=== PATIENT | female | born 1995 | race Caucasian/White ===

== ENCOUNTER 2017-05-23 20:35 | Emergency (ER) | payer SELFPAY ==
[~2017-05-23] VITALS: Ht 149.9 cm; Wt 67.7 kg
[2017-05-23 20:59] VITALS: BP 145/87
--- NOTE | 2017-05-23 21:04 | NUR ---
PT RETURNED TO LOBBY
--- NOTE | 2017-05-24 00:48 | NUR ---
PATIENT PRESENTS TO ED WITH C/O FEVER/ABD PAIN/VOMIT X 1 DAY. SKIN IS PINK/WARM/DRY; AAOX4 WITH EVEN AND STEADY GAIT; LUNGS CLEAR BL; HR EVEN AND REGULAR; PT DENIES ANY CP, SOB, OR COUGH AT THIS TIME; PATIENT STATES PAIN OF 10/10 AT THIS TIME; VSS; PATIENT POSITIONED FOR COMFORT; HOB ELEVATED; BEDRAILS UP X2; BED DOWN. ER MD MADE AWARE OF PT STATUS.
--- NOTE | 2017-05-24 00:56 | NUR ---
Patient discharged with v/s stable. Written and verbal after care instructions given and explained. Patient alert, oriented and verbalized understanding of instructions. Ambulatory with steady gait. All questions addressed prior to discharge. ID band removed. Patient advised to follow up with PMD. Rx of ZOFRAN 4MG ODT, MOTRIN 800MG given. Patient educated on indication of medication including possible reaction and side effects. Opportunity to ask questions provided and answered.
[2017-05-24 00:57] VITALS: BP 119/86
== END 2017-05-24 00:56 | disposition home or self-care (01) ==
LOC: MED 20:35
DX: A08.4 Viral intestinal infection, unspecified (principal)
CPT/HCPCS: 36415; 81002; 81025; 87804; 99285

== ENCOUNTER 2017-06-01 18:30 | Emergency (ER) | payer SELFPAY ==
[~2017-06-01] VITALS: Ht 149.9 cm; Wt 67.4 kg
[2017-06-01 19:05] VITALS: BP 128/76
--- NOTE | 2017-06-01 20:25 | NUR ---
AMBULATED TO ER BED 3
--- NOTE | 2017-06-01 20:35 | NUR ---
/ CAME IN W C/O VAGINAL BLEEDING AND 03/01 SUPRAPUBIC PAIN X 1 WEEK. PT STATES SHE WAS SEEN HERE IN ER FOR N/V/ ABD PAIN ADN WAS GIVEN IBUPROFEN AND ZOFRAN, PT STATES THE MEDICINES MAKES HER PAIN WORSE. BS ACTIVE, ABD SOFT, ROUND AND +TENDERNESS TO LOWER ABD PAIN. DENIES N/V/D, SOB/COUGH/CP AT THIS TIME. DENIES OTHER PMH/RX/OTC Addendum: 06/01/17 at 2 by LISA REPORTS HEMATURIA/DYSURIA
--- NOTE | 2017-06-01 21:27 | NUR ---
Patient discharged with v/s stable. Written and verbal after care instructions given and explained. Patient alert, oriented and verbalized understanding of instructions. Ambulatory with steady gait. All questions addressed prior to discharge. ID band removed. Patient advised to follow up with PMD. Rx of TRAMADOL AND MACROBID given. Patient educated on indication of medication including possible reaction and side effects. Opportunity to ask questions provided and answered.
[2017-06-01 21:28] VITALS: BP 104/71
[2017-06-01 21:32] LABS: APPEARANCE,URINE CLOUDY (CLEAR); BILIRUBIN,URINE NEGATIVE (NEGATIVE); BLOOD, URINE 2+ (NEGATIVE); COLOR,URINE YELLOW (YELLOW); LEUKOCYTE ESTERASE ,URINE 1+ (NEGATIVE); NITRITE, URINE NEGATIVE (NEGATIVE); PH,URINE 7.5 (5.0-9.0); UGLUCOSE NEGATIVE (NEGATIVE)
[2017-06-01 21:40] LABS: RBC,URINE 0-5 (RARE) /HPF (0-5); WBC,URINE 80-100 /HPF (0-5)
== END 2017-06-01 21:27 | disposition home or self-care (01) ==
LOC: MED 18:30
DX: N93.8 Other specified abnormal uterine and vaginal bleeding (principal); N39.0 Urinary tract infection, site not specified
CPT/HCPCS: 81001; 81025; 87086; 87186; 99284

== ENCOUNTER 2017-08-22 21:25 | Inpatient (IN) | payer SELFPAY ==
[~2017-08-22] VITALS: Ht 160 cm; Wt 68.9 kg
[2017-08-22 21:27] VITALS: BP 149/90
[2017-08-22] MEDS ORDERED: ACETAMINOPHEN EXTRA STRENGTH 500 MG TAB PO ONE (22:45)
[2017-08-22 23:26] LABS: BASOPHILS # (AUTO) 0.5 K/uL (0.00-0.22); BASOPHILS % (AUTO) 4.8 % (0.0-2.0); EOSINOPHILS # (AUTO) 0.1 K/uL (0-0.4); EOSINOPHILS % (AUTO) 0.9 % (0.0-4.0); HEMATOCRIT 42.9 % (36-48); HEMOGLOBIN 14.5 g/dL (12.0-16.0); LYMPHOCYTES # (AUTO) 2.5 K/uL (2.5-16.5); LYMPHOCYTES % (AUTO) 24.8 % (20.5-51.1); MEAN CORPUSCULAR HEMOGLOBIN 30 pg (27-31); MEAN CORPUSCULAR HGB CONC 34 g/dL (33-37); MONOCYTES # (AUTO) 0.7 K/uL (0.8-1.0); NEUTROPHILS # (AUTO) 6.2 K/uL (1.8-7.7); NEUTROPHILS % (AUTO) 62.5 % (42.2-75.2); PLATELET COUNT (AUTO) 274 K/uL (140-450); RED BLOOD CELL COUNT(AUTO) 4.93 MIL/uL (4.20-5.40); RED CELL DISTRIBUTION WIDTH 13.3 % (11.6-13.7)
[2017-08-22 23:27] LABS: ANION GAP 14.4 (8-16); CARBON DIOXIDE 29.2 mmol/L (21-32); CREATININE 0.5 mg/dL (0.6-1.3); POTASSIUM 3.6 mmol/L (3.5-5.1)
[2017-08-22 23:34] LABS: ALBUMIN 3.9 g/dL (3.4-5.0); TOTAL BILIRUBIN 0.2 mg/dL (0.0-1.0)
[2017-08-23 02:14] LABS: APPEARANCE,URINE SL CLOUDY (CLEAR); BILIRUBIN,URINE NEGATIVE (NEGATIVE); BLOOD, URINE 3+ (NEGATIVE); COLOR,URINE YELLOW (YELLOW); LEUKOCYTE ESTERASE ,URINE NEGATIVE (NEGATIVE); NITRITE, URINE NEGATIVE (NEGATIVE); PH,URINE 5.5 (5.0-9.0); UGLUCOSE NEGATIVE (NEGATIVE)
[2017-08-23] MEDS ORDERED: PIPERACILLIN/TAZOBACTAM 3.375 GM in DEXTROSE 5% 50 ML IV ONE (02:25)
[2017-08-23] MEDS ORDERED: NACL 0.9% 1,000 ML IV ONE (02:25)
[2017-08-23 02:35] LABS: RBC,URINE TOO NUMEROUS TO COUN /HPF (0-5); WBC,URINE NONE SEEN /HPF (0-5)
[2017-08-23] MEDS ORDERED: PIPERACILLIN/TAZOBACTAM 3.375 GM VIAL IV ONE (02:37)
[2017-08-23] MEDS ORDERED: ONDANSETRON 4 MG/2 ML VIAL IVP PRN ×2 (03:55→17:40)
[2017-08-23] MEDS ORDERED: ACETAMINOPHEN 325 MG TAB PO PRN (03:55)
[2017-08-23 04:24] LABS: BARBITURATE, URINE NEG. ng/ml (NEG <=200); BENZODIAZEPINE, URINE NEG. ng/mL (NEG <=200); CANNABINOID, URINE NEG. ng/mL (NEG <=50); COCAINE, URINE NEG. ng/mL (NEG <=300); OPIATE, URINE NEG. ng/mL (NEG <=2000); PHENCYCLIDINE SCREEN,URINE NEG. ng/mL (NEG <=25)
[2017-08-23 04:34] LABS: CHOL/HDL RATIO 2.8 (1-4.5); FREE T4 (FREE THYROXINE) 0.98 ng/dL (0.76-1.46); THYROID STIMULATING HORMONE 4.12 uIU/mL (0.34-3.74)
[2017-08-23] MEDS: NACL 0.9% 1,000 ML IV SCH ×2 (04:38→13:54)
[2017-08-23 04:40] VITALS: BP 123/66
[2017-08-23 08:00] VITALS: BP 110/61
[2017-08-23 08:13] LABS: PROTHROMBIN TIME 11.3 secs (10.8-13.4)
[2017-08-23 08:20] LABS: EOSINOPHILS # (AUTO) 0.1 K/uL (0-0.4); HEMATOCRIT 39.7 % (36-48); HEMOGLOBIN 13.4 g/dL (12.0-16.0); LYMPHOCYTES # (AUTO) 2.3 K/uL (2.5-16.5); MEAN CORPUSCULAR HEMOGLOBIN 30 pg (27-31); MEAN CORPUSCULAR HGB CONC 34 g/dL (33-37); MEAN CORPUSCULAR VOLUME 88.2 fL (80-94); MONOCYTES # (AUTO) 0.5 K/uL (0.8-1.0); NEUTROPHILS # (AUTO) 4.2 K/uL (1.8-7.7); PLATELET COUNT (AUTO) 245 K/uL (140-450); WHITE BLOOD COUNT (AUTO) 7.2 K/uL (4.8-10.8)
[2017-08-23 08:23] LABS: LYMPHOCYTES % (AUTO) 32.3 % (20.5-51.1); MONOCYTES % (AUTO) 7.4 % (1.7-9.3); NEUTROPHILS % (AUTO) 58.8 % (42.2-75.2)
[2017-08-23 08:24] LABS: BASOPHILS % (AUTO) 0.7 % (0.0-2.0); EOSINOPHILS % (AUTO) 0.8 % (0.0-4.0)
[2017-08-23 08:26] LABS: ANION GAP 11.4 (8-16); CARBON DIOXIDE 28.4 mmol/L (21-32); CREATININE 0.5 mg/dL (0.6-1.3); POTASSIUM 3.8 mmol/L (3.5-5.1)
[2017-08-23 08:41] LABS: MAGNESIUM 1.9 mg/dL (1.8-2.4); PHOSPHORUS 3.6 mg/dL (2.5-4.9)
[2017-08-23] MEDS: DOCUSATE SODIUM 100 MG GELCAP PO SCH ×2 (09:00→21:31)
[2017-08-23] MEDS: LACTOBACILLUS RHAMNOSUS GG 1 EACH CAP PO SCH ×2 (09:00→11:35)
[2017-08-23] MEDS: HYDROcodone/APAP 7.5/325 MG 1 TAB PO PRN ×2 (11:35→19:54)
[2017-08-23 12:00] VITALS: BP 108/60
[2017-08-23] MEDS: PIPER/TAZO 3.375GM/D5W PREMIX 50 ML IV SCH ×2 (12:29→21:35)
[2017-08-23 16:00] VITALS: BP 110/63
[2017-08-23] MEDS: BUPIVACAINE-MPF 0.25% 30 ML VIAL INJ ONE ×2 (16:58→17:37)
[2017-08-23] MEDS ORDERED: NEOSTIGMINE 1:1000 10 MG/10 ML VIAL ONE (17:02)
[2017-08-23] MEDS ORDERED: fentaNYL 0.05 MG/ML VIAL ONE (17:02)
[2017-08-23] MEDS ORDERED: ONDANSETRON 4 MG/2 ML VIAL ONE (17:02)
[2017-08-23] MEDS ORDERED: MORPHINE SULFATE 4 MG/ML SYR ONE (17:02)
[2017-08-23] MEDS ORDERED: PROPOFOL 200 MG/20 ML VIAL IV ONE (17:02)
[2017-08-23] MEDS ORDERED: DEXAMETHASONE 4 MG/ML VIAL ONE (17:02)
[2017-08-23] MEDS ORDERED: GLYCOPYRROLATE 0.2 MG/ML VIAL ONE (17:02)
[2017-08-23] MEDS ORDERED: SUCCINYLCHOLINE CHLORIDE 200 MG/10 ML VIAL IVP ONE ×2 (17:02→17:06)
[2017-08-23] MEDS ORDERED: ROCURONIUM 50 MG/5 ML VIAL IV ONE (17:02)
[2017-08-23] MEDS ORDERED: DESFLURANE 240 ML BTL INH ONE (17:02)
[2017-08-23] MEDS ORDERED: KETOROLAC 30 MG/ML VIAL ONE (17:02)
[2017-08-23] MEDS ORDERED: MORPHINE SULFATE 2 MG/ML SYR IVP PRN (17:40)
[2017-08-23 19:30] VITALS: BP 102/64
[2017-08-23 20:00] VITALS: BP 108/68
[2017-08-23] MEDS ORDERED: KETOROLAC 30 MG/ML VIAL IM PRN (22:40)
[2017-08-23] MEDS: HYDROcodone/APAP 10/325 MG 1 TAB TAB PO PRN (23:06)
[2017-08-24] VITALS: BP 105/62
[2017-08-24] MEDS: PIPER/TAZO 3.375GM/D5W PREMIX 50 ML IV SCH ×2 (04:16→13:00)
[2017-08-24] MEDS: NACL 0.9% 1,000 ML IV SCH ×2 (04:16→09:54)
[2017-08-24 07:03] VITALS: BP 90/60
[2017-08-24 07:07] LABS: BASOPHILS # (AUTO) 0.1 K/uL (0.00-0.22); BASOPHILS % (AUTO) 1.3 % (0.0-2.0); EOSINOPHILS % (AUTO) 0.1 % (0.0-4.0); HEMATOCRIT 37.4 % (36-48); HEMOGLOBIN 12.8 g/dL (12.0-16.0); LYMPHOCYTES # (AUTO) 0.9 K/uL (2.5-16.5); LYMPHOCYTES % (AUTO) 9.9 % (20.5-51.1); MEAN CORPUSCULAR HEMOGLOBIN 30 pg (27-31); MEAN CORPUSCULAR HGB CONC 34 g/dL (33-37); MEAN CORPUSCULAR VOLUME 87.8 fL (80-94); MONOCYTES # (AUTO) 0.3 K/uL (0.8-1.0); MONOCYTES % (AUTO) 2.9 % (1.7-9.3); NEUTROPHILS # (AUTO) 7.8 K/uL (1.8-7.7); NEUTROPHILS % (AUTO) 85.8 % (42.2-75.2); PLATELET COUNT (AUTO) 242 K/uL (140-450); RED BLOOD CELL COUNT(AUTO) 4.26 MIL/uL (4.20-5.40); WHITE BLOOD COUNT (AUTO) 9.1 K/uL (4.8-10.8)
[2017-08-24 07:21] LABS: ANION GAP 13.7 (8-16); CREATININE 0.5 mg/dL (0.6-1.3); POTASSIUM 3.7 mmol/L (3.5-5.1)
[2017-08-24 08:00] VITALS: BP 93/61
[2017-08-24] MEDS: DOCUSATE SODIUM 100 MG GELCAP PO SCH (08:48)
[2017-08-24] MEDS: LACTOBACILLUS RHAMNOSUS GG 1 EACH CAP PO SCH (08:48)
[2017-08-24] MEDS: HYDROcodone/APAP 10/325 MG 1 TAB TAB PO PRN (11:25)
[2017-08-24] MEDS ORDERED: IBUP-2213 PO (11:57)
[2017-08-24] MEDS ORDERED: DOCU-299 PO (11:57)
[2017-08-24] MEDS ORDERED: ACET-2869 PO (11:57)
[2017-08-24] MEDS ORDERED: ONDA4TAB4 PO (11:57)
[2017-08-24 16:01] VITALS: BP 93/53
== END 2017-08-24 18:00 | disposition home or self-care (01) | DRG 343 ==
LOC: MED 21:25 → MTU 08-23 03:58
PROVIDERS: ADMIT Family Medicine Sports Medicine; ATTEND Family Medicine Sports Medicine
PROC: 0DTJ4ZZ Resection of Appendix, Percutaneous Endoscopic Approach (ICD-10-PCS; principal; 2017-08-23 12:25)
DX: K35.80 Unspecified acute appendicitis (principal); R31.9 Hematuria, unspecified
CPT/HCPCS: 36415; 71045; 80048; 80053; 80305; 81001; 81025; 82150; 82374; 83036; 83690; 83735; 83880; 84100; 84439; 84443; 84484; 84703; 85025; 85610; 85730; 87081; 93005; 96365; 99285; J0330; J1100; J1644; J1885; J2270; J2405; J2543; J2704; J2710; J3010; J3490; J7030; Q0092

== ENCOUNTER 2020-11-11 19:44 | Emergency (ER) | payer SELFPAY ==
[~2020-11-11] VITALS: Ht 149.9 cm; Wt 77.1 kg
[~2020-11-11 19:44] MED LIST: DOCU-299 PO; HYDR-5122 PO; IBUP-2213 PO; ONDA4TAB12 PO
[2020-11-11 19:46] VITALS: BP 126/75
[2020-11-11] MEDS ORDERED: AMOX1TAB8 PO (20:46)
[2020-11-11 21:05] VITALS: BP 126/75
== END 2020-11-11 21:05 | disposition home or self-care (01) ==
LOC: MED 19:44
DX: H60.92 Unspecified otitis externa, left ear (principal); J32.0 Chronic maxillary sinusitis; Z90.49 Acquired absence of other specified parts of digestive tract
CPT/HCPCS: 81002; 81025; 99283

== ENCOUNTER 2020-11-14 06:45 | Emergency (ER) | payer SELFPAY ==
[~2020-11-14] VITALS: Ht 149.9 cm; Wt 74.4 kg
[~2020-11-14 06:45] MED LIST changes: +AMOX1TAB8 PO
[2020-11-14 06:53] VITALS: BP 110/69
--- NOTE | 2020-11-14 06:54 | NUR ---
AMBULATED TO ER BED 4
--- NOTE | 2020-11-14 07:04 | NUR ---
PT TAKEN TO BED 4.
--- NOTE | 2020-11-14 07:12 | NUR ---
25 Y/O FEMALE BIB [facility] OTHER FOR RIGHT EAR/FACIAL PAIN. PER PATIENT, SHE WAS SEEN ON 11/11 AT [facility] FOR THE SAME SYMPTOMS AND WAS PRESCRIBED AUGMENTIN. PAIN IS STILL AT A 3/10, SHARP PAIN; BACK OF THE EAR IS TENDER TO TOUCH. PMH: DENIES NKDA MEDS: NONE Addendum: 11/14/20 at 0727 by [email or web address] PATIENT STATE PAIN 10/10 CURRENTLY FELT IN HEAD RADIATING DOWN TO EAR/JAW AREA. STATES PAIN STARTED X2DAYS AGO. UPON ASSESSMENT PATIENT IS UNABLE TO COMPLETELY CLOSE R EYE, UNABLE TO RAISE R EYEBROW, AND LIFT R SIDE OF LIPS WHEN SMILING. DENIES ANY DIZZNESS, N/V, BUT STATES HEADACHE.
--- NOTE | 2020-11-14 07:12 | NUR ---
Dr. Latif is evaluating the patient at bedside.
--- NOTE | 2020-11-14 07:13 | NUR ---
GIVEN REPORT TO MICHOACANO MILLER. TRANSFER OF CARE AT THIS TIME
--- NOTE | 2020-11-14 07:14 | NUR ---
RECIEVED REPORT ANGELA COYNE. TRANSFER OF CARE RECIEVED
[2020-11-14 07:53] LABS: BASOPHILS % (AUTO) 0.4 % (0.0-2.0); EOSINOPHILS # (AUTO) 0.1 K/uL (0-0.4); EOSINOPHILS % (AUTO) 1.6 % (0.0-4.0); HEMATOCRIT 43.4 % (36-48); HEMOGLOBIN 14.9 g/dL (12.0-16.0); LYMPHOCYTES # (AUTO) 2.7 K/uL (2.5-16.5); LYMPHOCYTES % (AUTO) 41.4 % (20.5-51.1); MEAN CORPUSCULAR HEMOGLOBIN 31 pg (27-31); MEAN CORPUSCULAR HGB CONC 34 g/dL (33-37); MEAN CORPUSCULAR VOLUME 90.9 fL (80-94); MONOCYTES # (AUTO) 0.4 K/uL (0.8-1.0); MONOCYTES % (AUTO) 5.5 % (1.7-9.3); NEUTROPHILS # (AUTO) 3.3 K/uL (1.8-7.7); NEUTROPHILS % (AUTO) 51.1 % (42.2-75.2); PLATELET COUNT (AUTO) 292 K/uL (140-450); RED BLOOD CELL COUNT(AUTO) 4.78 MIL/uL (4.20-5.40); RED CELL DISTRIBUTION WIDTH 14.3 % (11.6-13.7); WHITE BLOOD COUNT (AUTO) 6.4 K/uL (4.8-10.8)
--- NOTE | 2020-11-14 07:56 | NUR ---
RECIEVED CONSENT FOR CT WITH CONTRAST BEDSIDE
--- NOTE | 2020-11-14 07:56 | NUR ---
PATIENT TAKEN TO CT W/O CONTRAST VIA W/C
[2020-11-14 08:00] LABS: ANION GAP 18.5 (8-16); CARBON DIOXIDE 26.3 mmol/L (21-32); CREATININE 0.6 mg/dL (0.6-1.3); POTASSIUM 3.8 mmol/L (3.5-5.1)
[2020-11-14] MEDS ORDERED: HYDROcodone/APAP 5/325 MG 1 TAB TAB PO SCH (08:00)
--- NOTE | 2020-11-14 08:05 | NUR ---
PATIENT RETURNED TO BED FROM C/T W/O CONTRAST VIA W/C
--- NOTE | 2020-11-14 08:32 | NUR ---
PATIENT TAKEN TO CT W/CONTRAST VIA W/C
--- NOTE | 2020-11-14 08:44 | NUR ---
PATIENT RETURNED TO BED FROM C/T W/CONTRAST VIA W/C
--- NOTE | 2020-11-14 08:53 | NUR ---
PATIENT AMBULATED TO RESTROOM. GAIT IS STEADY
--- NOTE | 2020-11-14 08:56 | NUR ---
PATIENT AMBULATED TO BED. GAIT WAS STEADY
--- NOTE | 2020-11-14 09:37 | NUR ---
Dr. Latif is reevaluating the patient at bedside.
[2020-11-14] MEDS ORDERED: POLY15SO48 LEFT EYE (09:46)
[2020-11-14] MEDS ORDERED: PRED20TA5 PO ×2 (09:46→09:49)
[2020-11-14] MEDS ORDERED: ACYC400T14 PO ×2 (09:46→09:49)
[2020-11-14] MEDS ORDERED: POLY15SO48 RIGHT EYE (09:49)
[2020-11-14 10:07] VITALS: BP 114/65
--- NOTE | 2020-11-14 10:08 | NUR ---
Patient discharged with v/s stable. Written and verbal after care instructions given BELLS PALSY and explained. Patient alert, oriented and verbalized understanding of instructions. Ambulatory with steady gait. All questions addressed prior to discharge. ID band removed. Patient advised to follow up with PMD. Rx of ACYCLOVIR 400MG PO TID X7DAYS, ARTIFICIAL TEARS QID IN AFFECTED EYE, AND PREDNISONE 20MG PO FOR 7DAYS given. Patient educated on indication of medication including possible reaction and side effects. Opportunity to ask questions provided and answered.
== END 2020-11-14 10:07 | disposition home or self-care (01) ==
LOC: MED 06:45
DX: G51.0 Bell's palsy (principal); H92.02 Otalgia, left ear; Z79.899 Other long term (current) drug therapy; Z90.49 Acquired absence of other specified parts of digestive tract
CPT/HCPCS: 36415; 70450; 70460; 70486; 70491; 80048; 81002; 81025; 85025; 99285; Q9967

== ENCOUNTER 2022-04-01 21:10 | Inpatient (IN) | payer MEDICAID ==
[~2022-04-01] VITALS: Ht 160 cm; Wt 79.4 kg
[~2022-04-01 21:10] MED LIST changes: +ACYC400T14 PO; +AMOX-1230 PO; -AMOX1TAB8 PO; +POLY15SO48 RIGHT EYE; +PRED20TA5 PO
--- NOTE | 2022-04-01 21:15 | NUR ---
Patient BIB [facility] and [facility] Department for syncopal episode approx 2015 hrs. [facility] staff stated that jesica's BP was 65/40 upon arrival, and patient was A/Ox1, O2 sat 98% RA. After patient received IV fluids, recheck BP was 134/82, HR 110, O2 sat 99% RA, A/Ox4. Patient transferred to Bed 5, resting comfortably, 20 G IV LAC flushed and patent, patient on monitor
--- NOTE | 2022-04-01 21:20 | NUR ---
Patient resting in bed, A/Ox4, chest rise and fall symmetrical, no s/s of distress, patient on monitor.
[2022-04-01 21:46] VITALS: BP 104/72
[2022-04-01 21:50] LABS: BASOPHILS % (AUTO) 0.3 % (0.0-2.0); HEMATOCRIT 30.8 % (36-48); LYMPHOCYTES # (AUTO) 1.2 K/uL (2.5-16.5); LYMPHOCYTES % (AUTO) 7.6 % (20.5-51.1); MEAN CORPUSCULAR HEMOGLOBIN 29 pg (27-31); MEAN CORPUSCULAR HGB CONC 33 g/dL (33-37); MEAN CORPUSCULAR VOLUME 89.3 fL (80-94); MONOCYTES # (AUTO) 0.4 K/uL (0.8-1.0); MONOCYTES % (AUTO) 2.6 % (1.7-9.3); NEUTROPHILS # (AUTO) 13.6 K/uL (1.8-7.7); NEUTROPHILS % (AUTO) 89.5 % (42.2-75.2); PLATELET COUNT (AUTO) 257 K/uL (140-450); RED BLOOD CELL COUNT(AUTO) 3.45 MIL/uL (4.20-5.40); RED CELL DISTRIBUTION WIDTH 14.2 % (11.6-13.7); WHITE BLOOD COUNT (AUTO) 15.2 K/uL (4.8-10.8)
[2022-04-01 22:07] LABS: CARBON DIOXIDE 25.9 mmol/L (21-32); CREATININE 0.9 mg/dL (0.6-1.3); POTASSIUM 3.9 mmol/L (3.5-5.1)
[2022-04-01 22:08] LABS: PROTHROMBIN TIME 11.2 secs (10.8-13.4)
--- NOTE | 2022-04-01 22:15 | NUR ---
Patient resting in bed, A/Ox4, chest rise and fall symmetrical, no s/s of distress, patient on monitor.
[2022-04-01] MEDS ORDERED: BUPIVACAINE-MPF 0.25% 30 ML VIAL INJ ONE (22:36)
--- NOTE | 2022-04-01 22:37 | NUR ---
OR TEAM AT BEDSIDE
[2022-04-01] MEDS ORDERED: PIPERACILLIN/TAZOBACTAM 3.375 GM VIAL IV ONE (22:39)
--- NOTE | 2022-04-01 22:40 | NUR ---
OR Team Nurse Russ MILLER given report verbally. OR Team Nurse Russ RN verbalized understanding of report, no further questions.
[2022-04-01] MEDS: NACL 0.9% 1,000 ML IV SCH (22:48)
[2022-04-01] MEDS: PIPERACILLIN/TAZOBACTAM 3.375 GM in DEXTROSE 5% 50 ML IV SCH (22:49)
[2022-04-01] MEDS ORDERED: MIDAZOLAM 2 MG/2 ML VIAL ONE (22:50)
[2022-04-01] MEDS ORDERED: fentaNYL citrate 0.05 MG/ML VIAL ONE (22:50)
[2022-04-01] MEDS ORDERED: PROPOFOL 200 MG/20 ML VIAL IV ONE (22:51)
[2022-04-01] MEDS ORDERED: ROCURONIUM 50 MG/5 ML VIAL IV ONE (22:51)
[2022-04-01] MEDS ORDERED: SEVOFLURANE 250 ML BTL INH ONE (23:15)
[2022-04-01] MEDS ORDERED: ONDANSETRON 4 MG/2 ML VIAL IVP PRN (23:45)
[2022-04-01] MEDS ORDERED: oxyCODONE/APAP 5/325 MG 1 TAB TAB PO PRN ×2 (23:45)
[2022-04-01] MEDS ORDERED: SIMETHICONE 80 MG TAB.CHEW PO PRN (23:45)
[2022-04-01] MEDS ORDERED: KETOROLAC 30 MG/ML VIAL IVP PRN (23:45)
[2022-04-01] MEDS ORDERED: TEMAZEPAM 15 MG CAP PO PRN (23:45)
[2022-04-01] MEDS ORDERED: IBUPROFEN 800 MG TAB PO PRN (23:45)
[2022-04-02] VITALS (12 sets, daily range): BP systolic 103–141; BP diastolic 63–82
[2022-04-02] MEDS ORDERED: SUGAMMADEX SODIUM 200 MG/2 ML VIAL IV ONE (00:15)
[2022-04-02] MEDS ORDERED: fentaNYL citrate 0.05 MG/ML VIAL ONE (00:21)
--- NOTE | 2022-04-02 00:36 | NUR ---
PATIENT ARRIVED TO UNIT VIA GURNEY, TRANSFER FROM OR. REPORT RECEIVED FROM BALDEV Mae RN PATIENT IS ALERT AND DROWSY. CURRENTLY ON 10L O2 VIA FACE MASK. PATIENT IS S/P EXPLORATORY LAPAROTOMY WITH LEFT SALPINGECTOMY; AND HAS LOW TRANSVERSE ABDOMINAL INCISION. POST OP DRESSING IS DRY AND INTACT. PATIENT CURRENTLY DENIES PAIN, REPORTS BEING SLEEPY AND WANTS TO REST. BROUGHT TO BEDSIDE; ALL QUESTIONS ANSWERED. SPOUSE WAS PROVIDED WITH PHONE NUMBER FOR ICU AND VERBALLY INFORMED ABOUT VISITATION HOURS AND POLICY. ALL ADMISSION AND POST OP ORDERS REVIEWED. WILL CONTINUE TO MONITOR PATIENT FOR ANY ADVERSE REACTIONS. Addendum: 04/02/22 at 0309 by Gema Grover RN WENDI SANCHEZ (),
[2022-04-02] MEDS ORDERED: ONDANSETRON 4 MG/2 ML VIAL IVP PRN ×2 (00:50→07:10)
[2022-04-02] MEDS ORDERED: HYDROmorphone 1 MG/ML AMP IVP PRN (00:50)
[2022-04-02] MEDS ORDERED: MEPERIDINE 25 MG/ML SYR IVP PRN (00:50)
[2022-04-02] MEDS: LACTATED RINGERS 1,000 ML IV SCH ×3 (00:50→17:32)
[2022-04-02] MEDS ORDERED: ePHEDrine 50 MG/ML VIAL ONE ×2 (00:56)
[2022-04-02] MEDS ORDERED: ONDANSETRON 4 MG/2 ML VIAL ONE (00:56)
[2022-04-02] MEDS ORDERED: DEXAMETHASONE 4 MG/ML VIAL ONE (00:56)
[2022-04-02] MEDS ORDERED: METOCLOPRAMIDE 10 MG/2 ML INJ VIAL ONE (00:56)
[2022-04-02] MEDS ORDERED: PIPERACILLIN/TAZOBACTAM 3.375 GM VIAL IV ONE (06:26)
[2022-04-02] MEDS: PIPERACILLIN/TAZOBACTAM 3.375 GM in DEXTROSE 5% 50 ML IV SCH ×3 (06:51→22:29)
[2022-04-02] MEDS ORDERED: POTASSIUM CHLORIDE 10 MEQ TABER PO PRN (07:10)
[2022-04-02] MEDS: HYDROmorphone 1 MG/ML AMP IVP PRN ×2 (07:10→20:26)
[2022-04-02] MEDS ORDERED: ZOLPIDEM 10 MG TAB PO PRN (07:10)
[2022-04-02] MEDS ORDERED: LORazepam 2 MG/ML VIAL IVP PRN (07:10)
[2022-04-02] MEDS ORDERED: DOCUSATE SODIUM 100 MG GELCAP PO PRN (07:10)
[2022-04-02] MEDS ORDERED: MORPHINE SULFATE 2 MG/ML SYR IVP PRN (07:10)
[2022-04-02] MEDS ORDERED: ACETAMINOPHEN 325 MG TAB PO PRN (07:10)
[2022-04-02] MEDS ORDERED: MAG SULF 2000 MG/WATER PREMIX 50 ML IV PRN (07:10)
--- NOTE | 2022-04-02 07:15 | NUR ---
RECEIVED BEDSIDE REPORT FROM DROP WIRE HANGER HOWIE MILLER. PT AWAKE, BEDREST, A&0 X4, CITIZEN [place] SPEAKING. SR/ST ON MONITOR. IV TO LT AC 20G RUNNING D5 LR AT 120MLS/HR. IV TO RT AC 20G, SALINE LOCKED. FACE MASK O2 AT 10L. PEREZ IN PLACE, URINE CLEAR, YELLOW. MODERATE WEAKNESS S/T POST OP DAY 1. Addendum: 04/02/22 at 1016 by Jayce Crespo RN CLEAR LIQUID DIET
--- NOTE | 2022-04-02 07:23 | NUR ---
TRANSFER OF CARE TO DAY SHIFT, REPORT GIVEN TO ANGELA MURILLO AND SUZETTE RN
--- NOTE | 2022-04-02 08:00 | NUR ---
SEEN AND EXAMINED BY DR RODRIGUES. NO NEW ORDER.
[2022-04-02 08:01] LABS: ANION GAP 9.1 (8-16); CARBON DIOXIDE 24.7 mmol/L (21-32); CREATININE 0.6 mg/dL (0.6-1.3); POTASSIUM 3.8 mmol/L (3.5-5.1)
[2022-04-02] MEDS: NACL 0.9% 1,000 ML IV SCH (08:06)
[2022-04-02 08:30] LABS: BASOPHILS % (AUTO) 0.1 % (0.0-2.0); HEMATOCRIT 24.8 % (36-48); LYMPHOCYTES # (AUTO) 0.9 K/uL (2.5-16.5); MEAN CORPUSCULAR HEMOGLOBIN 29 pg (27-31); MEAN CORPUSCULAR HGB CONC 32 g/dL (33-37); MEAN CORPUSCULAR VOLUME 89.3 fL (80-94); MONOCYTES # (AUTO) 0.3 K/uL (0.8-1.0); MONOCYTES % (AUTO) 2.6 % (1.7-9.3); NEUTROPHILS # (AUTO) 8.8 K/uL (1.8-7.7); NEUTROPHILS % (AUTO) 88.3 % (42.2-75.2); PLATELET COUNT (AUTO) 216 K/uL (140-450); RED BLOOD CELL COUNT(AUTO) 2.77 MIL/uL (4.20-5.40); RED CELL DISTRIBUTION WIDTH 14.4 % (11.6-13.7)
--- NOTE | 2022-04-02 08:50 | NUR ---
FACE MASK O2 REMOVED, SWITCHED TO NASAL CANNULA 2L, O2 SATS 99%, PULSE BP 97/60, PULSE 121, RR 21, TEMP 98.9 F. PT TOLERATED WELL, NO S/S OF ACUTE RESPIRATORY DISTRESS.
--- NOTE | 2022-04-02 09:00 | NUR ---
PT FAMILY/ AT BEDSIDE. UPDATED PT INFORMATION. ALL QUESTION ANSWERED.
--- NOTE | 2022-04-02 09:30 | NUR ---
PT REPORTED PAIN 10/10, MORPHINE SULFATE 2MG IVP GIVEN AT 0924. PEREZ REMOVED PER MD ORDER, INTACT, PT TOLERATED WELL.
--- NOTE | 2022-04-02 10:06 | NUR ---
PATIENT HAS BEEN SCREENED AND CATEGORIZED MODERATE NUTRITION RISK. PATIENT WILL BE SEEN WITHIN 3-5 DAYS OF ADMISSION. 04/01/22-04/06/[address]
--- NOTE | 2022-04-02 10:24 | NUR ---
SEEN AND EXAMINED BY DR AGGARWAL. NO NEW ORDER.
--- NOTE | 2022-04-02 12:10 | NUR ---
PT ABLED TO URINATE ON HER OWN AFTER REMOVING THE PEREZ. ON ROOM AIR, TOLERATED WELL. O2 SAT 97%, BP 112/63, PULSE 122, RR 25.
--- NOTE | 2022-04-02 12:38 | NUR ---
DC [age] YRS OLD FEMALE PATIENT WAS ADMITTED FROM HOME WITH A DX OF RUPTURED ECTOPIC. PATIENT HAS A HX OF OVARIAN CYST. RAPID COVID TEST NEGATIVE. ADMINISTERED IVF, IV ABX ZOSYN . DR ULRICH BILINGUAL RESEARCH INTERVIEWER PERFORMED EXP LAP WITH REMOVAL OF INTRAABDOMINAL CLOT AND PARTIAL LEFT SALPINGECTOMY. SEE BY PULMO. DC PLAN TO GO HOME WHEN STABLE. CM TO FOLLOW
--- NOTE | 2022-04-02 13:06 | NUR ---
Dr. Perez roundgaby, updated pt and regarding plan of care. Dr. Perez New orders made.
--- NOTE | 2022-04-02 16:45 | NUR ---
Endorsed plan of care to RN.
--- NOTE | 2022-04-02 16:57 | NUR ---
PT TRANSFERRED TO [facility] ROOM [address] VIA WHEELCHAIR.
--- NOTE | 2022-04-02 17:00 | NUR ---
RECEIVED REPORT FOR CONTINUITY OF CARE FROM ANGELA MURILLO. [facility] WITH NO S/S OF ACUTE DISTRESS. MADE COMFORTABLE IN BED AND ORIENTED TO UNIT, CALL LIGTH AND EDUCATED ON FALL PRECAUTIONS. WILL CONTINUE TO MONITOR
--- NOTE | 2022-04-02 19:08 | NUR ---
REPORT GIVEN TO ANGELA PTA FOR CONTINUITY OF CARE. PATIENT TOLERATED DINNER WELL. Addendum: 04/02/22 at 1913 by Agency Bipin MILLER RN REPORT GIVEN TO ANGELA SHERWOOD FOR CONTINUITY OF CARE
--- NOTE | 2022-04-02 19:30 | NUR ---
RECEIVED REPORT FROM DAY NURSE. RESIDENT LYING ON THE BED, HOB ELEVATED, FAMILY AT BEDSIDE. RESIDENT HAS LEFT AC 20G IV ACCESS SITE, FLUSH WITHOUT RESISTANCE. ABDOMEN INCISION HAS CDI DRESSING, PATIENT HAS BINDER. CALL LIGHT WITHIN REACH, SAFETY PRECAUTIONS IN PLACE.
--- NOTE | 2022-04-02 20:00 | NUR ---
DUE MEDICATIONS GIVEN ORDERED, CALL LIGHT WITHIN REACH.
--- NOTE | 2022-04-02 20:26 | NUR ---
PATIENT C/O 8/10 PAIN ON ABDOMEN(INCISION SITE), GIVEN PRN PAIN MEDICATION ORDERED.
[2022-04-02] MEDS ORDERED: DOCUSATE SOD/SENNA 50/8.6 MG 1 TAB PO SCH (21:00)
--- NOTE | 2022-04-03 00:08 | NUR ---
PATIENT RESTING COMFORTABLY IN BED. DENIES PAIN AT THIS TIME. CALL LIGHT IN REACH.
[2022-04-03] MEDS: LACTATED RINGERS 1,000 ML IV SCH ×2 (03:57→10:36)
[2022-04-03 04:00] VITALS: BP 104/65
[2022-04-03 05:37] LABS: BASOPHILS % (AUTO) 0.3 % (0.0-2.0); EOSINOPHILS % (AUTO) 0.1 % (0.0-4.0); HEMATOCRIT 20.9 % (36-48); LYMPHOCYTES # (AUTO) 2.3 K/uL (2.5-16.5); LYMPHOCYTES % (AUTO) 25.1 % (20.5-51.1); MEAN CORPUSCULAR HEMOGLOBIN 30 pg (27-31); MEAN CORPUSCULAR HGB CONC 33 g/dL (33-37); MEAN CORPUSCULAR VOLUME 89.6 fL (80-94); MONOCYTES # (AUTO) 0.6 K/uL (0.8-1.0); MONOCYTES % (AUTO) 6.6 % (1.7-9.3); NEUTROPHILS # (AUTO) 6.2 K/uL (1.8-7.7); NEUTROPHILS % (AUTO) 67.9 % (42.2-75.2); PLATELET COUNT (AUTO) 196 K/uL (140-450); RED BLOOD CELL COUNT(AUTO) 2.33 MIL/uL (4.20-5.40); RED CELL DISTRIBUTION WIDTH 14.4 % (11.6-13.7); WHITE BLOOD COUNT (AUTO) 9.1 K/uL (4.8-10.8)
--- NOTE | 2022-04-03 06:00 | NUR ---
PATIENT ASSISTED TO THE RESTROOM, DENIES PAIN, NO SIGNS OF DISTRESS NOTED. DUE MEDICATION GIVEN ORDERED. CALL LIGHT WITHIN REACH. WILL CONTINUE TO MONITOR.
--- NOTE | 2022-04-03 06:10 | NUR ---
LAB CALLED FOR HGB-7.0 HCT-20.9, INFORMED DR. RODRIGUES ORDERED TO TRANSFUSE 1 UNIT PRBC. WILL CARRY OUT ORDER.
[2022-04-03] MEDS: PIPERACILLIN/TAZOBACTAM 3.375 GM in DEXTROSE 5% 50 ML IV SCH ×2 (06:19→14:35)
[2022-04-03 06:25] LABS: ANION GAP 7.3 (8-16); CARBON DIOXIDE 29.1 mmol/L (21-32); CREATININE 0.5 mg/dL (0.6-1.3); POTASSIUM 3.4 mmol/L (3.5-5.1)
[2022-04-03 08:00] VITALS: BP 126/70
--- NOTE | 2022-04-03 09:15 | NUR ---
BEGAN ADMINISTERING 1 UNIT OF PRBC. PRE TRANSFUSION VS STABLES. WILL CONTINUE TO MONITOR.
--- NOTE | 2022-04-03 11:45 | NUR ---
COMPLETED 1 UNIT OF PRBC. NO SIGNS OF DISTRESS NOTED. WILL CONTINUE TO MONITOR.
[2022-04-03 14:13] LABS: BASOPHILS % (AUTO) 0.4 % (0.0-2.0); EOSINOPHILS % (AUTO) 0.1 % (0.0-4.0); HEMOGLOBIN 8.9 g/dL (12.0-16.0); LYMPHOCYTES # (AUTO) 2.6 K/uL (2.5-16.5); LYMPHOCYTES % (AUTO) 25.9 % (20.5-51.1); MEAN CORPUSCULAR HEMOGLOBIN 31 pg (27-31); MEAN CORPUSCULAR HGB CONC 34 g/dL (33-37); MEAN CORPUSCULAR VOLUME 89.4 fL (80-94); MONOCYTES # (AUTO) 0.7 K/uL (0.8-1.0); NEUTROPHILS # (AUTO) 6.7 K/uL (1.8-7.7); NEUTROPHILS % (AUTO) 66.6 % (42.2-75.2); PLATELET COUNT (AUTO) 209 K/uL (140-450); RED BLOOD CELL COUNT(AUTO) 2.91 MIL/uL (4.20-5.40); RED CELL DISTRIBUTION WIDTH 14.4 % (11.6-13.7); WHITE BLOOD COUNT (AUTO) 10.1 K/uL (4.8-10.8)
--- NOTE | 2022-04-03 15:07 | NUR ---
ALL SCHEDULED MEDS GIVEN. PT IS STABLE. NO DISTRESS NOTED. WILL CONTINUE TO MONITOR.
[2022-04-03] MEDS ORDERED: AMOX-999 PO (15:32)
[2022-04-03] MEDS ORDERED: HYDR-5080 PO (15:33)
[2022-04-03] MEDS ORDERED: [UNRECOGNIZED DRUG - CODE] PO (15:46)
--- NOTE | 2022-04-03 16:50 | NUR ---
ENDORSED DISCHARGE INSTRUCTIONS TO PATIENT AND . BOTH PARTIES VERBALIZED UNDERSTANDING AND PATIENT SIGNED DISCHARGE FORMS.
--- NOTE | 2022-04-03 17:00 | NUR ---
PATIENT DISCHARGED OFF THE UNIT. IV CATH WAS REMOVED. PT WAS STABLE PRIOR TO DISCHARGE.
== END 2022-04-03 17:12 | disposition home or self-care (01) | DRG 547 ==
LOC: MED 21:10 → MMU 22:06 → MIC 22:39 → MMU 04-02 17:06
PROVIDERS: ADMIT Family Medicine; ATTEND Family Medicine
PROC: 0UB60ZZ Excision of Left Fallopian Tube, Open Approach (ICD-10-PCS; principal; 2022-04-01 22:30)
PROC: 30233N1 Transfusion of Nonautologous Red Blood Cells into Peripheral Vein, Percutaneous Approach (ICD-10-PCS; 2022-04-03)
DX: O00.90 Unspecified ectopic pregnancy without intrauterine pregnancy (principal); R65.20 Severe sepsis without septic shock; J96.01 Acute respiratory failure with hypoxia; E87.1 Hypo-osmolality and hyponatremia; O98.811 Other maternal infectious and parasitic diseases complicating pregnancy, first trimester; D62 Acute posthemorrhagic anemia; O26.891 Other specified pregnancy related conditions, first trimester; R73.9 Hyperglycemia, unspecified; A41.9 Sepsis, unspecified organism; O99.511 Diseases of the respiratory system complicating pregnancy, first trimester; O99.011 Anemia complicating pregnancy, first trimester; Z20.822 Contact with and (suspected) exposure to COVID-19; Z90.49 Acquired absence of other specified parts of digestive tract; Z79.899 Other long term (current) drug therapy; Z79.1 Long term (current) use of non-steroidal anti-inflammatories (NSAID); Z79.891 Long term (current) use of opiate analgesic
CPT/HCPCS: 36415; 71045; 80048; 83735; 84702; 84703; 85025; 85610; 85730; 86886; 86900; 86901; 86920; 87081; 99291; 99292; J1100; J1170; J2250; J2270; J2405; J2543; J2704; J2765; J3010; J3490; J7060; P9016; Q0092